=== PATIENT | female | born 1955 | race Caucasian/White ===

== ENCOUNTER 2024-02-23 16:01 | Emergency (ER) | payer OTHER, MEDICAID ==
[~2024-02-23] VITALS: Ht 152.4 cm; Wt 64.9 kg
[2024-02-23 17:12] VITALS: BP_SYST 156; PULSE 86; RESP 18; TEMP 97.8; O2SAT 96
[2024-02-23] MEDS: ACETAMINOPHEN 500 MG TABLET PO ONE (18:24)
[2024-02-23] MEDS: KETOROLAC TROMETHAMINE 30 MG VIAL IM ONE (20:11)
[2024-02-23] MEDS ORDERED: DICL20GE TP (20:17)
[2024-02-23] MEDS ORDERED: LIDO1ADH22 TP (20:17)
[2024-02-23 20:20] VITALS: BP_SYST 169; PULSE 83; RESP 16; TEMP 98.5; O2SAT 96
== END 2024-02-23 20:20 | disposition home or self-care (01) ==
LOC: SED 16:01
DX: S20.211A Contusion of right front wall of thorax, initial encounter (principal); M25.551 Pain in right hip; M54.50 Low back pain, unspecified; J45.909 Unspecified asthma, uncomplicated; I10 Essential (primary) hypertension; Z85.9 Personal history of malignant neoplasm, unspecified; W18.39XA Other fall on same level, initial encounter; Y93.89 Activity, other specified; Y92.89 Other specified places as the place of occurrence of the external cause; Y99.8 Other external cause status
CPT/HCPCS: 99284; 71100; 72100; 73502; 96372; J1885